=== PATIENT | female | born 1995 | race Caucasian/White ===

== ENCOUNTER 2017-04-24 11:04 | Emergency (ER) | payer OTHER ==
[2017-04-24 13:21] VITALS: BP 112/76
== END 2017-04-24 13:21 | disposition home or self-care (01) ==
LOC: ED 11:04
DX: J20.9 Acute bronchitis, unspecified (principal)

== ENCOUNTER 2017-05-19 22:13 | Emergency (ER) | payer OTHER ==
[~2017-05-19] VITALS: Ht 152.4 cm; Wt 67.6 kg
[2017-05-19 22:46] VITALS: BP 108/71; Ht 152.4 cm; Wt 67.6 kg
== END 2017-05-20 02:17 | disposition left against medical advice (07) ==
LOC: ED 22:13
DX: Z53.21 Procedure and treatment not carried out due to patient leaving prior to being seen by health care provider (principal)

== ENCOUNTER 2017-11-24 12:30 | Emergency (ER) | payer OTHER ==
[~2017-11-24] VITALS: Ht 152.4 cm; Wt 68.0 kg
[2017-11-24 12:46] VITALS: Ht 152.4 cm; Wt 68.0 kg
[2017-11-24 14:02] LABS: BASOPHIL % 0.5 % (0-2); PLATELET COUNT 308 x10^3mcL (130-400); RED CELL DISTRIBUTION WIDTH 14.2 % (11.5-14.5)
[2017-11-24 14:20] LABS: UA SPECIFIC GRAVITY 1.015 (1.005-1.035)
[2017-11-24 14:21] LABS: microscopic required? YES
[2017-11-24 14:24] LABS: urine erythrocyte 3+ (NEGATIVE)
[2017-11-24 15:56] VITALS: BP 120/64
== END 2017-11-24 15:56 | disposition home or self-care (01) ==
LOC: ED 12:30
PROVIDERS: Emergency Medicine
DX: O20.0 Threatened abortion (principal); N93.9 Abnormal uterine and vaginal bleeding, unspecified; Z3A.01 Less than 8 weeks gestation of pregnancy
CPT/HCPCS: 36415

== ENCOUNTER 2017-11-26 19:43 | Emergency (ER) | payer OTHER ==
[~2017-11-26] VITALS: Ht 152.4 cm; Wt 69.9 kg
[2017-11-26 19:53] VITALS: Ht 152.4 cm; Wt 69.9 kg
[2017-11-26 22:10] VITALS: BP 112/68
== END 2017-11-26 22:10 | disposition home or self-care (01) ==
LOC: ED 19:43
DX: O03.9 Complete or unspecified spontaneous abortion without complication (principal); Z3A.01 Less than 8 weeks gestation of pregnancy